=== PATIENT | female | born 1990 | race Native Hawaiian/Other Pacific Islander ===

== ENCOUNTER 2025-01-24 16:12 | Inpatient (IN) | payer OTHER ==
[2025-01-24 16:47] VITALS: BMI 24.5
[2025-01-24] MEDS ORDERED: MAG HYDROX/AL HYDROX/SIMETH 30 ML UNIT-DOSE CUP PO PRN (17:32)
[2025-01-24] MEDS ORDERED: ACETAMINOPHEN 325 MG TABLET (FP) PO PRN (17:32)
[2025-01-24] MEDS ORDERED: MAGNESIUM HYDROX 2400MG/30ML ORAL SUSPENSION 30 ML CUP PO PRN (17:32)
[2025-01-24] MEDS ORDERED: ONDANSETRON *ODT* 4 MG TABLET SL PRN (17:32)
[2025-01-24] MEDS ORDERED: guaiFENesin 600 MG TABLET.ER (FP) PO PRN (17:32)
[2025-01-24] MEDS ORDERED: DICYCLOMINE HCL 10 MG CAPSULE PO PRN (17:32)
[2025-01-24] MEDS ORDERED: NICOTINE POLACRILEX 2 MG GUM BUC PRN (17:32)
[2025-01-24] MEDS ORDERED: LOPERAMIDE HCL 2 MG CAPSULE PO PRN (17:32)
[2025-01-24] MEDS ORDERED: NALOXONE (NARCAN) HCL 4 MG/0.1 ML SPRAY NS PRN (17:32)
[2025-01-24] MEDS ORDERED: BENZONATATE 200 MG CAPSULE PO PRN (17:32)
[2025-01-24] MEDS ORDERED: POLYETHYLENE GLYCOL (HEALTHYLAX) 3350 17 GM PACKET PO PRN (17:32)
[2025-01-24] MEDS ORDERED: BENZOCAINE/MENTHOL (CHLORASEPTIC ) LOZENGE MM PRN (17:32)
[2025-01-24] MEDS ORDERED: BISMUTH SUBSALICYLATE 524 MG/30 ML PO PRN (17:32)
[2025-01-24] MEDS ORDERED: IBUPROFEN 400 MG TABLET (FP) PO PRN (17:32)
[2025-01-24] MEDS ORDERED: hydrOXYzine PAMOATE 25 MG CAPSULE (FP) PO PRN (17:32)
[2025-01-24] MEDS ORDERED: IBUPROFEN 600 MG TABLET (FP) PO PRN (17:32)
[2025-01-24] MEDS: MELATONIN 5 MG TABLETS PO SCH (22:42)
[2025-01-24] MEDS: THIAMINE 100 MG TABLET PO SCH (22:42)
[2025-01-25] MEDS: PRENATAL VITAMINS W/ FOLIC ACID TABLET (FP) PO SCH (09:53)
[2025-01-25] MEDS: METHOCARBAMOL 500 MG TABLET PO PRN (09:55)
[2025-01-25 10:57] LABS: HEMATOCRIT 35.4 % (34.1-44.9); MCHC 31.1 g/dl (32.2-35.5); MEAN CELL VOLUME 82.5 fl (79.4-94.8); MEAN PLT VOLUME 10.1 fl (9.4-12.3); PLATELET COUNT 350 x10^3/uL (182-369); RDW 16.2 % (12.1-16.8)
[2025-01-25 11:06] LABS: CHLORIDE 107 mmol/L (98-107); POTASSIUM 4.4 mmol/L (3.5-5.1); SODIUM 139 mmol/L (136-145)
[2025-01-25 11:27] LABS: BLOOD UREA NITROGEN 7.4 mg/dL (7-18); CALCIUM 9.2 mg/dL (8.5-10.1)
[2025-01-25 11:28] LABS: ANION GAP 9 mmol/L (4-13); CO2 24 mmol/L (21-32)
[2025-01-25 11:29] LABS: SGPT/ALT 15 U/L (13-61)
[2025-01-25 11:30] LABS: CREATININE 0.5 mg/dL (0.55-1.3); SGOT/AST 16 U/L (15-37)
[2025-01-25 11:31] LABS: BILIRUBIN,TOTAL 0.7 mg/dL (0.2-1)
[2025-01-25 11:32] LABS: ALK PHOS 73 U/L (45-117)
[2025-01-25 12:00] LABS: GLUCOSE,RANDOM 103 mg/dL (74-106)
[2025-01-26 13:24] VITALS: BP 117/63; PULSE 70; RESP 16; TEMP 98
== END 2025-01-26 13:30 | disposition other institution (70) | DRG 774 ==
LOC: YASAS 16:12 → Y6N 19:44
PROVIDERS: ADMIT Allergy & Immunology; ATTEND Allergy & Immunology
PROC: HZ2ZZZZ Detoxification Services for Substance Abuse Treatment (ICD-10-PCS; principal; 2025-01-24)
DX: F10.230 Alcohol dependence with withdrawal, uncomplicated (principal); F14.20 Cocaine dependence, uncomplicated; F12.20 Cannabis dependence, uncomplicated; F17.210 Nicotine dependence, cigarettes, uncomplicated; F31.9 Bipolar disorder, unspecified; F39 Unspecified mood [affective] disorder; F41.9 Anxiety disorder, unspecified; J45.20 Mild intermittent asthma, uncomplicated; Z62.810 Personal history of physical and sexual abuse in childhood; Z91.410 Personal history of adult physical and sexual abuse; Z63.8 Other specified problems related to primary support group; Z63.0 Problems in relationship with spouse or partner
CPT/HCPCS: 36415; 80053; 80307; 85027; 86780; 93005; 93010

== ENCOUNTER 2025-01-26 13:24 | Inpatient (IN) | payer OTHER ==
[2025-01-26] MEDS ORDERED: LOPERAMIDE HCL 2 MG CAPSULE PO PRN (16:26)
[2025-01-26] MEDS ORDERED: guaiFENesin 600 MG TABLET.ER (FP) PO PRN (16:26)
[2025-01-26] MEDS ORDERED: NICOTINE POLACRILEX 2 MG GUM BUC PRN (16:26)
[2025-01-26] MEDS ORDERED: MAG HYDROX/AL HYDROX/SIMETH 30 ML UNIT-DOSE CUP PO PRN (16:26)
[2025-01-26] MEDS ORDERED: BENZOCAINE/MENTHOL (CHLORASEPTIC ) LOZENGE MM PRN (16:26)
[2025-01-26] MEDS ORDERED: BENZONATATE 200 MG CAPSULE PO PRN (16:26)
[2025-01-26] MEDS: METHOCARBAMOL 500 MG TABLET PO PRN (17:09)
[2025-01-26] MEDS: ALBUTEROL SO4 HFA INHALER IH SCH (17:09)
[2025-01-26] MEDS: MELATONIN 5 MG TABLETS PO SCH (22:50)
[2025-01-26] MEDS: THIAMINE 100 MG TABLET PO SCH (22:50)
[2025-01-27] MEDS: PRENATAL VITAMINS W/ FOLIC ACID TABLET (FP) PO SCH (05:53)
[2025-01-27] MEDS: IBUPROFEN 600 MG TABLET (FP) PO PRN (18:13)
[2025-01-27] MEDS: hydrOXYzine PAMOATE 25 MG CAPSULE (FP) PO PRN (22:40)
[2025-01-28] MEDS: AMOX TR/POT CLAV 875MG/125MG TABLETS (FP) PO SCH (17:45)
[2025-01-28] MEDS: BACITRACIN 0.9 GM PACKET TP SCH (23:16)
[2025-01-29] MEDS ORDERED: ALBUTEROL SO4 HFA INHALER IH PRN (15:36)
[2025-01-29] MEDS: ACETAMINOPHEN 325 MG TABLET (FP) PO PRN (17:37)
[2025-02-01] MEDS: AMOX TR/POT CLAV 875MG/125MG TABLETS (FP) PO SCH (17:13)
[2025-02-05] MEDS: IBUPROFEN 400 MG TABLET (FP) PO PRN (15:45)
[2025-02-07] MEDS: NALTREXONE HCL 50 MG TABLET PO ONE (14:44)
[2025-02-07] MEDS: BENZOYL PEROXIDE 5% 60 GM GEL..GRAM. TP ONE (15:52)
[2025-02-07] MEDS: CLINDAMYCIN PHOSPHATE 1% TOPICAL GEL 30 GM TUBE TP SCH (21:34)
[2025-02-08] MEDS: ONDANSETRON *ODT* 4 MG TABLET SL PRN (04:22)
[2025-02-08] MEDS: NALTREXONE HCL 50 MG TABLET PO SCH (09:44)
[2025-02-12] MEDS: MAGNESIUM HYDROX 2400MG/30ML ORAL SUSPENSION 30 ML CUP PO PRN (10:21)
[2025-02-13] MEDS: POLYETHYLENE GLYCOL (HEALTHYLAX) 3350 17 GM PACKET PO PRN (12:58)
[2025-02-14 06:58] VITALS: RESP 16
[2025-02-14] MEDS: DOXYCYCLINE HYCLATE 100 MG TABLET PO SCH (10:48)
[2025-02-15 07:05] VITALS: PULSE 61
[2025-02-16 07:06] VITALS: BP 114/69; TEMP 97.5
== END 2025-02-16 10:45 | disposition home or self-care (01) | DRG 772 ==
LOC: YASAS 13:24 → Y3NR 13:25 → Y5N 01-30 11:39
PROVIDERS: ADMIT Psychiatry & Neurology Pain Medicine; ATTEND Psychiatry & Neurology Pain Medicine
PROC: HZ42ZZZ Group Counseling for Substance Abuse Treatment, Cognitive-Behavioral (ICD-10-PCS; principal; 2025-01-26)
DX: F10.20 Alcohol dependence, uncomplicated (principal); F14.20 Cocaine dependence, uncomplicated; F12.20 Cannabis dependence, uncomplicated; F17.210 Nicotine dependence, cigarettes, uncomplicated; F39 Unspecified mood [affective] disorder; F41.9 Anxiety disorder, unspecified; F32.A Depression, unspecified; J45.20 Mild intermittent asthma, uncomplicated; L73.2 Hidradenitis suppurativa
CPT/HCPCS: 36415; 86803; Q0162